=== PATIENT | female | born 1995 | race Caucasian/White ===

== ENCOUNTER 2024-12-07 07:42 | Emergency (ER) | payer OTHER, SELFPAY ==
[2024-12-07 07:55] VITALS: BP 109/76; PULSE 67; RESP 16; TEMP 37.9; O2SAT 99; BMI 28.9
--- NOTE | 2024-12-07 08:12 | CRLHL7_ITS ---
For Patients: As a result of the Century Cures Act, medical imaging exams and procedure reports are released immediately into your electronic medical record. You may view this report before your referring provider. If you have questions, please contact your health care provider. Indication: Right arm pinched in gait, swelling Technique: Two views right forearm Comparison: None Findings/Impression: Bones: Alignment is normal. No fractures or bone lesions. Joint spaces: Unremarkable. Soft tissues: Unremarkable. Dictated by Ruy Frank MD @ 12/07/2024 8:28:07 AM (Electronically Signed)
--- NOTE | 2024-12-07 08:34 | ED.GENADULT ---
HPI - General Adult General Chief complaint: Back Injury/Pain Stated complaint: R arm pinched in gate at work/also low back Time Seen by Provider: 12/07/24 08:13 History of Present Illness HPI narrative: patient was closing a gate and a hog backed into the gate causing injury to the right forearm which is swollen, able to move and form a fist. also pushed patient back into another gate causing lower back pain . in the right hand some tingling. bending hurts in the back, a little pain with walking 29-year-old young woman presenting to the emergency department with concern of pain in her right forearm and low back, really more the sacral area. 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 Is having a good deal of pain. Feeling some tingling into her right hand as well. She was pressed back then also occurring impact at her lower back somewhat. She is able to walk but it causes pain. Bending hurts. No radicular symptoms or loss of bowel or bladder control noted. This occurred yesterday afternoon I believe. She is accompanied by [employer] healthcare patient access representative. Related Data Home Medications ?Medication ?Instructions ?Recorded ?Confirmed No Known Home Medications 12/07/24 12/07/24 Allergies Allergy/AdvReac Type Severity Reaction Status Date / Time No Known Drug Allergies Allergy Verified 12/07/24 08:07 Review of Systems Status of ROS: Reports: 6 or more systems reviewed and unremarkable except as noted in History and below [facility] Social History Smoking Status: Never smoker Non-prescribed substance use: denies use Exam Narrative: Exam Narrative: New pleasant. NAD but favoring her right arm. Seated on the exam bed. Head looks atraumatic. Skin is warm and dry. There is some swelling over the distal ulnar area. Trace erythema consistent with impact as well I think. She is able to hesitantly flex and extend the wrist and open and close her hand but affected by pain; creates some weakness I think. She has no abdominal pain palpation. No hip pain. She is however tender to palpation at the low sacrum. I do not see swelling or erythema here. No pain to palpation about the elbow in moving her shoulder without apparent difficulty. Const: Vital Signs, click to edit/add: Vital Signs - 24 hr 12/07/24 07:55 Temperature 100.3 F H Pulse Rate [Right Pulse Oximeter] 67 Respiratory Rate 16 Blood Pressure [Le ft Upper Arm] 109/76 Pulse Oximetry 99 Oxygen Delivery Me thod Room Air Documenting provider has reviewed patient's vital signs: yes Course Vital Signs Vital signs: Initial Vital Signs Temperature 100.3 F H 12/07/24 07:55 Temperature Source Temporal Artery Scan 12/07/24 07:55 Pulse Rate 67 12/07/24 07:55 Respiratory Rate 16 12/07/24 07:55 Blood Pressure 109/76 12/07/24 07:55 Blood Pressure Mean 87 12/07/24 07:55 Blood Pressure Position Sitting 12/07/24 07:55 Pulse Oximetry 99 12/07/24 07:55 Oxygen Delivery Method Room Air 12/07/24 07:55 Vital Signs Temperature 100.3 F H 12/07/24 07:55 Pulse Rate 67 12/07/24 07:55 Respiratory Rate 16 12/07/24 07:55 Blood Pressure 109/76 12/07/24 07:55 Pulse Oximetry 99 12/07/24 07:55 Oxygen Delivery Method Room Air 12/07/24 07:55 Temperature 97.5 F L 12/07/24 09:10 Pulse Rate 67 12/07/24 07:55 Respiratory Rate 16 12/07/24 07:55 Blood Pressure 109/76 12/07/24 07:55 Pulse Oximetry 99 12/07/24 07:55 Oxygen Delivery Method Room Air 12/07/24 07:55 Medical Decision Making MDM Narrative Medical decision making narrative: I suspect primarily periosteal contusion and hematoma. I think given her ability to sit without significant difficulty and good unlikely that a rash to this take the coccyx. Most likely contusion here as well. No other red flags. It would be prudent to x-ray the right forearm. Ice pack. X-ray of the right forearm independently reviewed by me appears to be without acute bony abnormality. Indication: Right arm pinched in gait, swelling Technique: Two views right forearm Comparison: None Findings/Impression: Bones: Alignment is normal. No fractures or bone lesions. Joint spaces: Unremarkable. Soft tissues: Unremarkable. Dictated by Ruy Frank MD @ 12/07/2024 8:28:07 AM (Electronically Signed) We did provide with an arm sling. Work is able to and anticipating providing modified/light duty. I have written a work note. She was having trouble sleeping last night for the pain so did prescribe small quantity of [place]. See patient discharge plan for further discussion Think you have a bad bruise at this point. Also in your arm is likely a blood collection in the muscles called a hematoma. I would like you to wear this arm sling for comfort as needed over this next week. Try to wear the strap more across your back than on your neck. I like those ice bags as discussed. Feel with ice and water and use the Ryan wrap to hold it in place. Ice your arm and probably your sacrum a few times daily over the next few days. I would avoid heavy lifting on your right arm through the weekend. Practice some stretching of your low back. Be seen again if simply not improved in a week. I am prescribing some [place] from [facility]. This is an opiate that also contains 325 mg of acetaminophen per tablet. Can take up to 800 mg of ibuprofen or up to 1000 mg of acetaminophen per dose. Discharge Plan Discharge Clinical Impression: Contusion Patient Disposition: Home w/ Parent or Adult Condition: Stable Additional Instructions: Think you have a bad bruise at this point. Also in your arm is likely a blood collection in the muscles called a hematoma. I would like you to wear this arm sling for comfort as needed over this next week. Try to wear the strap more across your back than on your neck. I like those ice bags as discussed. Feel with ice and water and use the Ryan wrap to hold it in place. Ice your arm and probably your sacrum a few times daily over the next few days. I would avoid heavy lifting on your right arm through the weekend. Practice some stretching of your low back. Be seen again if simply not improved in a week. I am prescribing some [place] from [facility]. This is an opiate that also contains 325 mg of acetaminophen per tablet. Can take up to 800 mg of ibuprofen or up to 1000 mg of acetaminophen per dose. Creo que tienes un moret?n grave. Tambi?n es probable que tengas chantal acumulaci?n de tk en los m?sculos del brazo llamada hematoma. Me gustar?a que usaras gail cabestrillo para mayor comodidad william la pr?xima semana. Intenta usar la avilez m?s sobre la espalda que sobre el tejal. Me gustan las bolsas de hielo, isak ya comentamos. Palpa con hielo y agua y usa la venda Ryan para mantenerla en ennis lugar. Aplica hielo en el brazo y probablemente en el sacro varias veces al d?a william los pr?ximos d?as. Evitar?a levantar objetos pesados con el brazo derecho william el fin de semana. Practica estiramientos de la autumn lumbar. Vuelve a la consulta si no mejora en chantal semana. Te estoy recetando [place] de [facility]. Gail es un opi?note keeper que tambi?n contiene 325 mg de acetaminof?n por tableta. Puedes michael hasta 800 mg de ibuprofeno o hasta 1000 mg de acetaminof?n por dosis. Prescriptions: No Action No Known Home Medications Follow Up/Referrals: Provider,Not a Local [Primary Care Provider, Family Practice] Stand Alone Forms: MyHealth Info Instructions
[2024-12-07 09:10] VITALS: TEMP 36.4
== END 2024-12-07 09:46 | disposition home or self-care (01) ==
PROVIDERS: Emergency Provider Family Medicine
DX: S50.11XA Contusion of right forearm, initial encounter (principal)
CPT/HCPCS: 73090; 99283; 99284